=== PATIENT | female | born 1995 | race Caucasian/White ===

== ENCOUNTER 2017-12-12 18:15 | Emergency (ER) | payer OTHER ==
[~2017-12-12] VITALS: Ht 154.9 cm; Wt 83.9 kg
[~2017-12-12 18:15] MED LIST: IBUP-974 PO
[2017-12-12 19:29] VITALS: BP 119/68
--- NOTE | 2017-12-12 19:32 | NUR ---
TO LOBBY, A/W NICHOL ISLAS, SANAM ERMD NOTED
--- NOTE | 2017-12-12 20:10 | NUR ---
TO ER OF2
--- NOTE | 2017-12-12 20:40 | NUR ---
Patient discharged with v/s stable. Written and verbal after care instructions given and explained. Patient alert, oriented and verbalized understanding of instructions. Ambulatory with steady gait. All questions addressed prior to discharge. ID band removed. Patient advised to follow up with PMD. Rx of MOTRIN, AMOXICILLIN AND NEOMYCIN EAR DROPS given. Patient educated on indication of medication including possible reaction and side effects. Opportunity to ask questions provided and answered.
[2017-12-12 20:42] VITALS: BP 110/72
== END 2017-12-12 20:42 | disposition home or self-care (01) ==
LOC: MED 18:15
DX: H66.91 Otitis media, unspecified, right ear (principal); H60.91 Unspecified otitis externa, right ear
CPT/HCPCS: 99283

== ENCOUNTER 2018-01-20 08:16 | Emergency (ER) | payer OTHER ==
[~2018-01-20] VITALS: Ht 154.9 cm; Wt 93.4 kg
[2018-01-20 08:21] VITALS: BP 118/66
--- NOTE | 2018-01-20 08:25 | NUR ---
PT AMBULATED TO [facility].
--- NOTE | 2018-01-20 08:28 | NUR ---
PATIENT PRESENTS TO ED WITH c/o dry cough, rhinorrhea, throat pain, pain upon swallowing, subjective fever denies bodyaches . DENIES N/V/D; SKIN IS PINK/WARM/DRY; AAOX4 WITH EVEN AND STEADY GAIT; LUNGS CLEAR BL; HR EVEN AND REGULAR; PT DENIES ANY CP, SOB, AT THIS TIME; PATIENT STATES PAIN OF 8/10 AT THIS TIME; VSS; . ER MD MADE AWARE OF PT STATUS.
[2018-01-20 08:52] VITALS: BP 116/67
--- NOTE | 2018-01-20 08:52 | NUR ---
Patient discharged with v/s stable. Written and verbal after care instructions given and explained. Patient verbalized understanding. Ambulatory with steady gait. All questions addressed prior to discharge. Advised to follow up with PMD.
== END 2018-01-20 08:52 | disposition home or self-care (01) ==
LOC: MED 08:16
DX: J02.9 Acute pharyngitis, unspecified (principal)
CPT/HCPCS: 99281

== ENCOUNTER 2020-03-15 22:55 | Inpatient (IN) | payer OTHER ==
[~2020-03-15] VITALS: Ht 154.9 cm; Wt 98.9 kg
[2020-03-16] MEDS ORDERED: PREN-380 PO (00:19)
[2020-03-16] MEDS ORDERED: FERR-252 PO (00:19)
[2020-03-16] MEDS ORDERED: fentaNYL 0.05 MG/ML VIAL IVP PRN (00:20)
[2020-03-16] MEDS ORDERED: fentaNYL 0.1 MG/HR PATCH TD SCH (00:20)
[2020-03-16] MEDS ORDERED: OXYTOCIN 20 UNITS/LR PREMIX 1,000 ML IV SCH (00:20)
[2020-03-16 00:56] LABS: BASOPHILS # (AUTO) 0.1 K/uL (0.00-0.22); BASOPHILS % (AUTO) 0.6 % (0.0-2.0); EOSINOPHILS # (AUTO) 0.1 K/uL (0-0.4); EOSINOPHILS % (AUTO) 0.6 % (0.0-4.0); HEMATOCRIT 36.3 % (36-48); HEMOGLOBIN 12.5 g/dL (12.0-16.0); LYMPHOCYTES # (AUTO) 2.6 K/uL (2.5-16.5); LYMPHOCYTES % (AUTO) 27.5 % (20.5-51.1); MEAN CORPUSCULAR HEMOGLOBIN 30 pg (27-31); MEAN CORPUSCULAR HGB CONC 34 g/dL (33-37); MEAN CORPUSCULAR VOLUME 85.8 fL (80-94); MONOCYTES # (AUTO) 0.6 K/uL (0.8-1.0); MONOCYTES % (AUTO) 6.5 % (1.7-9.3); NEUTROPHILS # (AUTO) 6.1 K/uL (1.8-7.7); NEUTROPHILS % (AUTO) 64.8 % (42.2-75.2); PLATELET COUNT (AUTO) 114 K/uL (140-450); RED BLOOD CELL COUNT(AUTO) 4.23 MIL/uL (4.20-5.40); RED CELL DISTRIBUTION WIDTH 14.7 % (11.6-13.7); WHITE BLOOD COUNT (AUTO) 9.4 K/uL (4.8-10.8)
[2020-03-16 01:02] LABS: APPEARANCE,URINE SL CLOUDY (CLEAR); BILIRUBIN,URINE NEGATIVE (NEGATIVE); BLOOD, URINE NEGATIVE (NEGATIVE); COLOR,URINE YELLOW (YELLOW); LEUKOCYTE ESTERASE ,URINE 3+ (NEGATIVE); NITRITE, URINE NEGATIVE (NEGATIVE); PH,URINE 6.5 (5.0-9.0); UGLUCOSE NEGATIVE (NEGATIVE)
[2020-03-16 01:20] LABS: ALBUMIN 2.7 g/dL (3.4-5.0); ANION GAP 16.5 (8-16); CARBON DIOXIDE 21.5 mmol/L (21-32); CREATININE 0.8 mg/dL (0.6-1.3); TOTAL BILIRUBIN 0.2 mg/dL (0.0-1.0)
[2020-03-16] MEDS: LACTATED RINGERS 1,000 ML IV SCH ×3 (01:43→12:10)
[2020-03-16 01:49] LABS: RBC,URINE 0-5 /HPF (0-5); WBC,URINE 16-25 (MOD) /HPF (0-5)
[2020-03-16] MEDS ORDERED: ROPIVACAINE 0.2%/NS PREMIX 200 ML EPI ONE (01:58)
[2020-03-16 03:33] VITALS: BP 123/70
[2020-03-16] MEDS ORDERED: OXYTOCIN 20 UNITS/LR PREMIX 1,000 ML IV ONE (07:47)
[2020-03-16] MEDS ORDERED: OXYTOCIN 20 UNITS in LACTATED RINGERS 1,000 ML IV SCH (07:55)
[2020-03-16] MEDS ORDERED: METHYLERGONOVINE 0.2 MG/ML AMP ONE (13:14)
[2020-03-16] MEDS ORDERED: METHYLERGONOVINE 0.2 MG TAB PO PRN (13:25)
[2020-03-16] MEDS ORDERED: OXYTOCIN 10 UNITS/ML VIAL IM PRN (13:25)
[2020-03-16] MEDS ORDERED: IBUPROFEN 800 MG TAB PO PRN (13:25)
[2020-03-16] MEDS ORDERED: BENZOCAINE/MENTHOL 20%-0.5% 60 GM CAN TP PRN (13:25)
[2020-03-16] MEDS ORDERED: MEASLES, MUMPS, AND RUBELLA 1 VIAL SQVAC PRN (13:25)
[2020-03-16] MEDS ORDERED: METHYLERGONOVINE 0.2 MG/ML AMP IM PRN (13:25)
--- NOTE | 2020-03-16 15:06 | NUR ---
PATIENT HAS BEEN SCREENED AND CATEGORIZED LOW NUTRITION RISK. PATIENT WILL BE SEEN WITHIN 7 DAYS OF ADMISSION. 03/22/[address]
[2020-03-17 06:25] LABS: HEMATOCRIT 32.4 % (36-48)
[2020-03-17 08:22] LABS: RAPID PLASMA REAGIN NON-REACTIVE (Non Reactiv)
== END 2020-03-17 16:00 | disposition home or self-care (01) | DRG 560 ==
LOC: MLD 22:55 → OBSVTOIN 03-16 00:29 → MLD 03-16 01:00 → MFCC 03-16 14:50
PROVIDERS: ADMIT Obstetrics & Gynecology; ATTEND Obstetrics & Gynecology
PROC: 10E0XZZ Delivery of Products of Conception, External Approach (ICD-10-PCS; principal; 2020-03-16)
PROC: 0KQM0ZZ Repair Perineum Muscle, Open Approach (ICD-10-PCS; 2020-03-16)
PROC: 3E0R3BZ Introduction of Anesthetic Agent into Spinal Canal, Percutaneous Approach (ICD-10-PCS; 2020-03-16)
PROC: 00HU33Z Insertion of Infusion Device into Spinal Canal, Percutaneous Approach (ICD-10-PCS; 2020-03-16)
PROC: 10907ZC Drainage of Amniotic Fluid, Therapeutic from Products of Conception, Via Natural or Artificial Opening (ICD-10-PCS; 2020-03-16)
DX: O70.1 Second degree perineal laceration during delivery (principal); D62 Acute posthemorrhagic anemia; Z37.0 Single live birth; Z3A.38 38 weeks gestation of pregnancy
CPT/HCPCS: G0378 ×2; 36415; 51702; 59409; 80053; 81001; 85018; 85025; 86592; 86886; 86900; 86901; 87086; J2210; J2590; J2795; J3010; J7120

== ENCOUNTER 2023-08-26 15:06 | Emergency (ER) | payer OTHER ==
[~2023-08-26] VITALS: Ht 154.9 cm; Wt 93.9 kg
[~2023-08-26 15:06] MED LIST changes: +FERR-252 PO; +PREN-380 PO
[2023-08-26 15:30] VITALS: BP 130/81; PULSE 90; RESP 18; TEMP 97.2; O2SAT 100
[2023-08-26 16:06] LABS: BASOPHILS # (AUTO) 0.1 K/uL (0.00-0.22); BASOPHILS % (AUTO) 0.4 % (0.0-2.0); EOSINOPHILS % (AUTO) 0.2 % (0.0-4.0); HEMATOCRIT 41.3 % (36-48); HEMOGLOBIN 13.8 g/dL (12.0-16.0); LYMPHOCYTES # (AUTO) 1.8 K/uL (2.5-16.5); LYMPHOCYTES % (AUTO) 14.7 % (20.5-51.1); MEAN CORPUSCULAR HEMOGLOBIN 29 pg (27-31); MEAN CORPUSCULAR HGB CONC 34 g/dL (33-37); MEAN CORPUSCULAR VOLUME 85.5 fL (80-94); MONOCYTES # (AUTO) 0.7 K/uL (0.8-1.0); MONOCYTES % (AUTO) 5.9 % (1.7-9.3); NEUTROPHILS # (AUTO) 9.7 K/uL (1.8-7.7); NEUTROPHILS % (AUTO) 78.8 % (42.2-75.2); PLATELET COUNT (AUTO) 234 K/uL (140-450); RED BLOOD CELL COUNT(AUTO) 4.82 MIL/uL (4.20-5.40); WHITE BLOOD COUNT (AUTO) 12.3 K/uL (4.8-10.8)
[2023-08-26 16:42] LABS: ALBUMIN 4.3 g/dL (3.4-5.0); ANION GAP 13.2 (8-16); CALCIUM 9.7 mg/dL (8.5-10.1); CARBON DIOXIDE 26.3 mmol/L (21-32); CREATININE 0.6 mg/dL (0.6-1.3); POTASSIUM 3.5 mmol/L (3.5-5.1); TOTAL BILIRUBIN 0.4 mg/dL (0.0-1.0); TOTAL PROTEIN, SERUM 8.2 g/dL (6.4-8.2)
[2023-08-26 18:32] VITALS: O2SAT 100
[2023-08-26 18:40] VITALS: BP 136/57; PULSE 77; RESP 18; TEMP 97.2; O2SAT 99
[2023-08-26 19:03] LABS: APPEARANCE,URINE CLEAR (CLEAR); BILIRUBIN,URINE NEGATIVE (NEGATIVE); BLOOD, URINE 1+ (NEGATIVE); COLOR,URINE YELLOW (YELLOW); LEUKOCYTE ESTERASE ,URINE 1+ (NEGATIVE); NITRITE, URINE NEGATIVE (NEGATIVE); PROTEIN,URINE NEGATIVE (NEGATIVE); UGLUCOSE NEGATIVE (NEGATIVE); UROBILINOGEN,URINE 0.2 EU/dL (0.2 - 1)
[2023-08-26 19:18] LABS: BACTERIA,URINE 10-30 (MOD) /HPF (None Seen); SQUAMOUS EPITHELIAL CELL,UR 4-10 (MOD) /LPF (0-3 (FEW))
[2023-08-26] MEDS ORDERED: IBUP-2809 PO (19:22)
[2023-08-26] MEDS ORDERED: AMOX1TAB8 PO ×2 (19:22→19:34)
[2023-08-26] MEDS ORDERED: IBUP-1842 PO (19:34)
== END 2023-08-26 19:31 | disposition home or self-care (01) ==
LOC: MED 15:06
DX: K57.92 Diverticulitis of intestine, part unspecified, without perforation or abscess without bleeding (principal); Z79.899 Other long term (current) drug therapy
CPT/HCPCS: 36415; 74177; 76856; 80053; 81001; 81025; 83690; 85025; 87086; 93976; 99285; Q0092; Q9967